=== PATIENT | male | born 1965 | race Caucasian/White ===

== ENCOUNTER 2017-09-08 21:36 | Emergency (ER) | payer OTHER ==
[~2017-09-08] VITALS: Ht 162.6 cm; Wt 54.4 kg
[2017-09-08 21:38] VITALS: BP_SYST 140
[2017-09-08 22:05] LABS: BASOPHILS % (AUTO) 0.5 % (0.0-2.0); EOSINOPHILS % (AUTO) 0.7 % (0.0-4.0); HEMATOCRIT 34.9 % (36-54); HEMOGLOBIN 11.5 g/dL (14.0-18.0); LYMPHOCYTES # (AUTO) 1.2 K/uL (1.0-5.5); LYMPHOCYTES % (AUTO) 19.6 % (20.5-51.5); MEAN CORPUSCULAR HEMOGLOBIN 29 pg (27-31); MEAN CORPUSCULAR HGB CONC 33 % (32-36); MEAN CORPUSCULAR VOLUME 89 fL (79.0-98.0); MONOCYTES # (AUTO) 0.5 K/uL (0.0-1.0); MONOCYTES % (AUTO) 8.4 % (1.7-9.3); NEUTROPHILS # (AUTO) 4.4 K/uL (1.8-7.7); NEUTROPHILS % (AUTO) 70.8 % (40.0-70.0); PLATELET COUNT (AUTO) 221 K/uL (130-430); RED BLOOD CELL COUNT(AUTO) 3.94 MIL/uL (4.2-6.2); RED CELL DISTRIBUTION WIDTH 13.8 % (9.0-15.0); WHITE BLOOD COUNT (AUTO) 6.1 K/uL (4.8-10.8)
[2017-09-08 22:12] LABS: ANION GAP 9 (5-15); CHLORIDE 104 mmol/L (98-107); CREATININE 0.91 mg/dL (0.55-1.30); GLUCOSE 137 mg/dL (70-99); POTASSIUM 3.3 mmol/L (3.5-5.1); SODIUM SERUM 139 mmol/L (136-145); UREA NITROGEN, BLOOD 18 mg/dL (8-21)
[2017-09-08 22:18] LABS: GFR AFRICAN AMERICAN 113 mL/min (>90)
[2017-09-08 22:26] LABS: ALANINE AMINOTRANSFERASE 18 U/L (12-78); ALBUMIN 3.8 g/dL (3.4-4.8); ASPARTATE AMINOTRANSFERASE 15 U/L (10-37); TOTAL BILIRUBIN 0.2 mg/dL (0.0-1.0)
[2017-09-08] MEDS ORDERED: POTASSIUM CHLORIDE 20 MEQ/PKT PACKET PO ONE (22:30)
[2017-09-08 22:52] VITALS: BP_SYST 136
== END 2017-09-08 22:52 | disposition home or self-care (01) ==
LOC: SED 21:36
DX: E87.6 Hypokalemia (principal); R00.2 Palpitations; E03.9 Hypothyroidism, unspecified; Z88.8 Allergy status to other drugs, medicaments and biological substances
CPT/HCPCS: 36415; 80053; 84443-TC; 84484; 85025; 93005; 99285

== ENCOUNTER 2019-08-26 21:12 | Inpatient (IN) | payer OTHER ==
[~2019-08-26] VITALS: Ht 162.6 cm; Wt 59.0 kg
[2019-08-26] MEDS ORDERED: NACL 0.9% 1,700 ML IV ONE (21:14)
[2019-08-26 21:17] VITALS: BP_SYST 87
[2019-08-26 21:54] LABS: BASOPHILS # (AUTO) 0.1 K/uL (0.0-0.2); BASOPHILS % (AUTO) 1.1 % (0.0-2.0); EOSINOPHILS # (AUTO) 0.1 K/uL (0.0-0.4); EOSINOPHILS % (AUTO) 1.6 % (0.0-4.0); HEMATOCRIT 35.3 % (36-54); HEMOGLOBIN 11.6 g/dL (14.0-18.0); LYMPHOCYTES # (AUTO) 1.5 K/uL (1.0-5.5); LYMPHOCYTES % (AUTO) 28.3 % (20.5-51.5); MEAN CORPUSCULAR HEMOGLOBIN 30 pg (27-31); MEAN CORPUSCULAR HGB CONC 33 % (32-36); MEAN CORPUSCULAR VOLUME 90 fL (79.0-98.0); MONOCYTES # (AUTO) 0.5 K/uL (0.0-1.0); MONOCYTES % (AUTO) 9.2 % (1.7-9.3); NEUTROPHILS # (AUTO) 3.1 K/uL (1.8-7.7); NEUTROPHILS % (AUTO) 59.8 % (40.0-70.0); PLATELET COUNT (AUTO) 267 K/uL (130-430); RED BLOOD CELL COUNT(AUTO) 3.94 MIL/uL (4.2-6.2); WHITE BLOOD COUNT (AUTO) 5.2 K/uL (4.8-10.8)
[2019-08-26 21:55] LABS: CALCIUM 8.1 mg/dL (8.4-11.0); CREATININE 1.22 mg/dL (0.55-1.30); POTASSIUM 3.8 mmol/L (3.5-5.1)
[2019-08-26 22:00] LABS: ALBUMIN 3.3 g/dL (3.4-4.8); TOTAL BILIRUBIN 0.2 mg/dL (0.0-1.0)
[2019-08-26] MEDS ORDERED: NACL 0.9% 1,000 ML IV ONE (22:15)
[2019-08-26] MEDS ORDERED: KETOROLAC TROMETHAMINE 30 MG VIAL IVP ONE (22:15)
[2019-08-26] MEDS ORDERED: LEVOFLOXACIN 500 MG/D5W 100 ML IV ONE (22:15)
[2019-08-26 22:39] LABS: BILIRUBIN,URINE NEGATIVE (NEGATIVE); BLOOD, URINE NEGATIVE (NEGATIVE); CLARITY/URINE CLEAR (CLEAR); COLOR,URINE YELLOW (YELLOW); GLUCOSE,URINE NEGATIVE (NEGATIVE); KETONES,URINE NEGATIVE (NEGATIVE); LEUKOCYTE ESTERASE ,URINE NEGATIVE (NEGATIVE); NITRITE, URINE NEGATIVE (NEGATIVE); PROTEIN URINE NEGATIVE (NEGATIVE); UROBILINOGEN,URINE 0.2 (0.2-1.0)
[2019-08-26] MEDS ORDERED: CYM30 PO (22:56)
[2019-08-26] MEDS ORDERED: METO25TA6 PO (22:57)
[2019-08-26] MEDS ORDERED: PREG75CA PO (22:57)
[2019-08-26] MEDS ORDERED: PHEDM120 PO (22:58)
[2019-08-26] MEDS ORDERED: ALBU8.5H8 INH (22:58)
[2019-08-26] MEDS ORDERED: TIZA6CAP7 PO (22:59)
[2019-08-26] MEDS ORDERED: D5/0.45 NS 1,000 ML IV SCH (23:00)
[2019-08-26 23:20] VITALS: BP_SYST 113
[2019-08-26] MEDS ORDERED: ACETAMINOPHEN 325 MG TABLET PO PRN (23:30)
[2019-08-26] MEDS ORDERED: HYDROcodone/ACETAMIN 10-325 MG TAB PO PRN (23:30)
[2019-08-26] MEDS ORDERED: PROMETHAZINE-DM 6.25 MG-15 MG/5 ML UDC PO PRN (23:30)
[2019-08-26] MEDS ORDERED: LORazepam 2 MG/ML VIAL IVP PRN (23:30)
[2019-08-26] MEDS ORDERED: HYDROcodone/ACETAMIN 5-325 MG TAB (NORCO/ VICODIN) PO PRN (23:30)
[2019-08-26] MEDS ORDERED: NALT50TA PO (23:44)
[2019-08-26] MEDS ORDERED: ALBUTEROL SULFATE 0.083% 2.5 MG/3 ML VIAL.NEB INH PRN (23:45)
[2019-08-26] MEDS: D5/0.45 NS 1,000 ML IV SCH (23:55)
[2019-08-27 00:07] VITALS: BP_SYST 113
[2019-08-27 01:14] VITALS: BP_SYST 113
[2019-08-27] MEDS: HYDROmorphone 1 MG INJ. 1 MG/ML AMPUL IVP PRN ×4 (02:25→21:26)
[2019-08-27] MEDS: ONDANSETRON HCL 4 MG/2 ML VIAL IVP PRN ×4 (02:26→21:27)
[2019-08-27] MEDS ORDERED: metroNIDAZOLE 500 mg/NS 100 ML IV ONE (05:05)
[2019-08-27] MEDS: metroNIDAZOLE 500 mg/NS 100 ML IV SCH ×3 (05:29→23:10)
[2019-08-27 07:34] LABS: CALCIUM 7.4 mg/dL (8.4-11.0); CREATININE 0.89 mg/dL (0.55-1.30); PHOSPHORUS 3.5 mg/dL (2.7-4.5); POTASSIUM 4.4 mmol/L (3.5-5.1)
[2019-08-27 07:37] LABS: BASOPHILS % (AUTO) 0.7 % (0.0-2.0); EOSINOPHILS # (AUTO) 0.1 K/uL (0.0-0.4); EOSINOPHILS % (AUTO) 1.9 % (0.0-4.0); HEMATOCRIT 34.5 % (36-54); HEMOGLOBIN 11.5 g/dL (14.0-18.0); LYMPHOCYTES # (AUTO) 1.7 K/uL (1.0-5.5); LYMPHOCYTES % (AUTO) 33.8 % (20.5-51.5); MEAN CORPUSCULAR HEMOGLOBIN 30 pg (27-31); MEAN CORPUSCULAR HGB CONC 33 % (32-36); MEAN CORPUSCULAR VOLUME 89 fL (79.0-98.0); MONOCYTES # (AUTO) 0.5 K/uL (0.0-1.0); MONOCYTES % (AUTO) 9.6 % (1.7-9.3); NEUTROPHILS # (AUTO) 2.7 K/uL (1.8-7.7); PLATELET COUNT (AUTO) 223 K/uL (130-430); RED BLOOD CELL COUNT(AUTO) 3.87 MIL/uL (4.2-6.2); RED CELL DISTRIBUTION WIDTH 15.1 % (9.0-15.0); WHITE BLOOD COUNT (AUTO) 5.1 K/uL (4.8-10.8)
[2019-08-27 07:54] VITALS: BP_SYST 146
[2019-08-27] MEDS: DULoxetine HCL 30 MG CAPSULE.DR (CYMBALTA) PO SCH (08:28)
[2019-08-27] MEDS: PREGABALIN 75 MG CAPSULE (LYRICA) PO SCH ×2 (08:28→20:14)
[2019-08-27] MEDS: CIPROFLOXACIN LACT 400 MG/D5W 200 ML IV SCH ×2 (08:38→20:14)
[2019-08-27] MEDS: METOPROLOL TARTRATE 25 MG TABLET PO SCH (11:14)
[2019-08-27] MEDS: D5/0.45 NS 1,000 ML IV SCH ×2 (11:27→20:15)
[2019-08-27 12:43] VITALS: BP_SYST 154
[2019-08-27 16:43] VITALS: BP_SYST 140
[2019-08-27 20:00] VITALS: BP_SYST 148
[2019-08-27] MEDS: tiZANidine HCL 4 MG TABLET PO SCH (20:14)
[2019-08-28] VITALS: BP_SYST 136
[2019-08-28] MEDS: HYDROmorphone 1 MG INJ. 1 MG/ML AMPUL IVP PRN ×5 (02:53→22:12)
[2019-08-28] MEDS: ONDANSETRON HCL 4 MG/2 ML VIAL IVP PRN ×5 (02:53→22:10)
[2019-08-28] MEDS: metroNIDAZOLE 500 mg/NS 100 ML IV SCH ×2 (05:49→14:33)
[2019-08-28] MEDS: D5/0.45 NS 1,000 ML IV SCH ×2 (05:50→14:35)
[2019-08-28 06:44] LABS: BASOPHILS % (AUTO) 0.8 % (0.0-2.0); EOSINOPHILS # (AUTO) 0.1 K/uL (0.0-0.4); HEMATOCRIT 34.1 % (36-54); HEMOGLOBIN 11.2 g/dL (14.0-18.0); LYMPHOCYTES # (AUTO) 1.3 K/uL (1.0-5.5); LYMPHOCYTES % (AUTO) 20.6 % (20.5-51.5); MEAN CORPUSCULAR HEMOGLOBIN 30 pg (27-31); MEAN CORPUSCULAR HGB CONC 33 % (32-36); MEAN CORPUSCULAR VOLUME 91 fL (79.0-98.0); MONOCYTES # (AUTO) 0.7 K/uL (0.0-1.0); MONOCYTES % (AUTO) 11.4 % (1.7-9.3); NEUTROPHILS % (AUTO) 65.2 % (40.0-70.0); PLATELET COUNT (AUTO) 227 K/uL (130-430); RED BLOOD CELL COUNT(AUTO) 3.77 MIL/uL (4.2-6.2); RED CELL DISTRIBUTION WIDTH 14.9 % (9.0-15.0); WHITE BLOOD COUNT (AUTO) 6.1 K/uL (4.8-10.8)
[2019-08-28 07:30] LABS: C-REACTIVE PROTEIN QUANT < 0.2 mg/dL (0-0.5)
[2019-08-28 07:33] LABS: ANION GAP 7 (5-15); CALCIUM 8.1 mg/dL (8.4-11.0); CHLORIDE 106 mmol/L (98-107); GFR AFRICAN AMERICAN 101 mL/min (>90); GLUCOSE 90 mg/dL (70-99); SODIUM SERUM 140 mmol/L (136-145); UREA NITROGEN, BLOOD 4 mg/dL (8-21)
[2019-08-28 07:45] VITALS: BP_SYST 143
[2019-08-28 08:13] LABS: ERYTHROCYTE SEDIMENTATION RATE 13 MM/HR (0-15)
[2019-08-28] MEDS: DULoxetine HCL 30 MG CAPSULE.DR (CYMBALTA) PO SCH (08:54)
[2019-08-28] MEDS: PREGABALIN 75 MG CAPSULE (LYRICA) PO SCH ×2 (08:54→22:14)
[2019-08-28] MEDS: METOPROLOL TARTRATE 25 MG TABLET PO SCH (08:55)
[2019-08-28] MEDS: CIPROFLOXACIN LACT 400 MG/D5W 200 ML IV SCH ×2 (08:56→22:14)
[2019-08-28] MEDS ORDERED: GASTROGRAFIN 120 ML ONE (09:20)
[2019-08-28 12:00] VITALS: BP_SYST 131
[2019-08-28 17:02] VITALS: BP_SYST 177
[2019-08-28] MEDS: cloNIDine HCL 0.1 MG TABLET PO PRN (18:09)
[2019-08-28 20:30] VITALS: BP_SYST 140
[2019-08-28] MEDS: tiZANidine HCL 4 MG TABLET PO SCH (22:15)
[2019-08-29 00:08] VITALS: BP_SYST 148
[2019-08-29 00:11] VITALS: BP_SYST 128
[2019-08-29] MEDS: metroNIDAZOLE 500 mg/NS 100 ML IV SCH ×4 (00:11→21:46)
[2019-08-29] MEDS: D5/0.45 NS 1,000 ML IV SCH ×3 (01:09→21:18)
[2019-08-29] MEDS: ONDANSETRON HCL 4 MG/2 ML VIAL IVP PRN ×5 (03:24→22:03)
[2019-08-29] MEDS: HYDROmorphone 1 MG INJ. 1 MG/ML AMPUL IVP PRN ×5 (03:27→21:51)
[2019-08-29 06:10] LABS: CALCIUM 8.2 mg/dL (8.4-11.0); CREATININE 0.88 mg/dL (0.55-1.30); POTASSIUM 4.2 mmol/L (3.5-5.1)
[2019-08-29 06:26] LABS: BASOPHILS % (AUTO) 0.9 % (0.0-2.0); EOSINOPHILS # (AUTO) 0.1 K/uL (0.0-0.4); EOSINOPHILS % (AUTO) 2.5 % (0.0-4.0); HEMATOCRIT 32.4 % (36-54); HEMOGLOBIN 10.7 g/dL (14.0-18.0); LYMPHOCYTES # (AUTO) 1.2 K/uL (1.0-5.5); LYMPHOCYTES % (AUTO) 23.6 % (20.5-51.5); MEAN CORPUSCULAR HEMOGLOBIN 30 pg (27-31); MEAN CORPUSCULAR HGB CONC 33 % (32-36); MONOCYTES # (AUTO) 0.8 K/uL (0.0-1.0); MONOCYTES % (AUTO) 16.1 % (1.7-9.3); NEUTROPHILS % (AUTO) 56.9 % (40.0-70.0); PLATELET COUNT (AUTO) 223 K/uL (130-430); RED BLOOD CELL COUNT(AUTO) 3.62 MIL/uL (4.2-6.2); RED CELL DISTRIBUTION WIDTH 14.6 % (9.0-15.0); WHITE BLOOD COUNT (AUTO) 5.2 K/uL (4.8-10.8)
[2019-08-29 07:25] LABS: MEAN CORPUSCULAR VOLUME 89 fL (79.0-98.0)
[2019-08-29] MEDS: DULoxetine HCL 30 MG CAPSULE.DR (CYMBALTA) PO SCH (08:36)
[2019-08-29] MEDS: PREGABALIN 75 MG CAPSULE (LYRICA) PO SCH ×2 (08:38→21:45)
[2019-08-29] MEDS: METOPROLOL TARTRATE 25 MG TABLET PO SCH (08:38)
[2019-08-29 13:08] VITALS: BP_SYST 117
[2019-08-29] MEDS: CIPROFLOXACIN LACT 400 MG/D5W 200 ML IV SCH ×2 (13:13→21:45)
[2019-08-29 16:39] VITALS: BP_SYST 142
[2019-08-29] MEDS ORDERED: BISACODYL 5 MG TABLET.DR (DULCOLAX) PO ONE (17:00)
[2019-08-29] MEDS ORDERED: GOLYTELY / COLYTE SOLUTION 4 LITERS PO ONE (18:00)
[2019-08-29 20:00] VITALS: BP_SYST 156
[2019-08-29] MEDS: tiZANidine HCL 4 MG TABLET PO SCH (21:46)
[2019-08-29] MEDS: cloNIDine HCL 0.1 MG TABLET PO PRN (21:50)
[2019-08-30] VITALS (11 sets, daily range): BP systolic 103–191
[2019-08-30] MEDS: HYDROmorphone 1 MG INJ. 1 MG/ML AMPUL IVP PRN ×2 (02:45→20:29)
[2019-08-30] MEDS: ONDANSETRON HCL 4 MG/2 ML VIAL IVP PRN ×2 (02:46→14:02)
[2019-08-30] MEDS: metroNIDAZOLE 500 mg/NS 100 ML IV SCH ×2 (05:49→14:00)
[2019-08-30] MEDS ORDERED: SIMETHICONE 40 MG/0.6 ML ML ONE (06:15)
[2019-08-30] MEDS ORDERED: fentaNYL CITRATE/PF 100 MCG/2 ML AMP ONE (06:16)
[2019-08-30] MEDS ORDERED: MIDAZOLAM HCL 5 MG/5 ML VIAL ONE (06:16)
[2019-08-30] MEDS ORDERED: ONDANSETRON HCL 4 MG/2 ML VIAL IVP PRN (07:30)
[2019-08-30] MEDS ORDERED: fentaNYL CITRATE/PF 100 MCG/2 ML AMP IVP PRN ×2 (07:30)
[2019-08-30] MEDS: CIPROFLOXACIN LACT 400 MG/D5W 200 ML IV SCH (09:39)
[2019-08-30] MEDS: PREGABALIN 75 MG CAPSULE (LYRICA) PO SCH ×2 (09:41→19:46)
[2019-08-30] MEDS: DULoxetine HCL 30 MG CAPSULE.DR (CYMBALTA) PO SCH (09:41)
[2019-08-30] MEDS: METOPROLOL TARTRATE 25 MG TABLET PO SCH (09:42)
[2019-08-30] MEDS ORDERED: POLY17PO4 PO (17:16)
[2019-08-30] MEDS ORDERED: FAMO20TA8 PO (17:16)
[2019-08-30] MEDS ORDERED: DOCU250C14 PO (17:16)
[2019-08-30] MEDS ORDERED: FLU VACC QS2019-20 36MOS UP/PF 60 MCG/0.5 ML SYRINGE I.M. PRN (18:30)
[2019-08-30] MEDS: tiZANidine HCL 4 MG TABLET PO SCH (19:47)
[2019-08-30] MEDS: cloNIDine HCL 0.1 MG TABLET PO PRN (19:50)
== END 2019-08-30 21:45 | disposition home or self-care (01) | DRG 872 ==
LOC: SED 21:12 → STU 22:53 → SMU 08-27 21:18 → STU 08-28 18:41 → SMU 08-28 23:16
PROVIDERS: ADMIT Preventive Medicine Preventive Medicine/Occupational Environmental Medicine; ATTEND Preventive Medicine Preventive Medicine/Occupational Environmental Medicine
PROC: 0DJD8ZZ Inspection of Lower Intestinal Tract, Via Natural or Artificial Opening Endoscopic (ICD-10-PCS; 2019-08-30)
PROC: 0DB98ZX Excision of Duodenum, Via Natural or Artificial Opening Endoscopic, Diagnostic (ICD-10-PCS; principal; 2019-08-30 07:00)
PROC: 0DB68ZX Excision of Stomach, Via Natural or Artificial Opening Endoscopic, Diagnostic (ICD-10-PCS; 2019-08-30 07:00)
DX: A41.9 Sepsis, unspecified organism (principal); A09 Infectious gastroenteritis and colitis, unspecified; E44.0 Moderate protein-calorie malnutrition; E87.2 Acidosis; K56.609 Unspecified intestinal obstruction, unspecified as to partial versus complete obstruction; D64.9 Anemia, unspecified; E83.52 Hypercalcemia; H54.8 Legal blindness, as defined in USA; K22.70 Barrett's esophagus without dysplasia; K29.70 Gastritis, unspecified, without bleeding; K44.9 Diaphragmatic hernia without obstruction or gangrene; R73.9 Hyperglycemia, unspecified; K59.00 Constipation, unspecified; K57.30 Diverticulosis of large intestine without perforation or abscess without bleeding; K64.8 Other hemorrhoids; M79.7 Fibromyalgia; Z85.038 Personal history of other malignant neoplasm of large intestine; Z68.22 Body mass index [BMI] 22.0-22.9, adult; Z79.899 Other long term (current) drug therapy; Z88.8 Allergy status to other drugs, medicaments and biological substances; Z80.0 Family history of malignant neoplasm of digestive organs
CPT/HCPCS: 36415; 43239; 45378; 71045; 74250-TC; 80048; 80053; 81003; 83605; 83735-TC; 84100-TC; 85025; 85651-TC; 86140; 87040-TC; 87045-TC; 87046; 87177; 87230-TC; 88305; 88312; 88313; 88341; 88342; 93005; 96361; 96365; 96375; 99291; G0378; J0744; J1170; J1885; J1956; J2250; J2405; J3010; J3490; Q2037; Q9963

== ENCOUNTER 2023-10-13 05:35 | Day surgery (SDC) | payer OTHER ==
[~2023-10-13] VITALS: Ht 157.5 cm; Wt 62.6 kg
[~2023-10-13 05:35] MED LIST: ALBU8.5H8 INH; CYM30 PO; DOCU250C14 PO; FAMO20TA8 PO; METO25TA6 PO; NALT50TA PO; PHEDM120 PO; POLY17PO4 PO; PREG75CA PO; TIZA6CAP7 PO
[2023-10-13] MEDS ORDERED: SIMETHICONE 40 MG/0.6 ML ML ONE (06:19)
[2023-10-13] MEDS ORDERED: LIDOCAINE 2%, 20 ML MDV ONE (07:05)
[2023-10-13] MEDS ORDERED: PROPOFOL 200MG/ 20ML VIAL (DIPRIVAN) IV ONE (07:05)
[2023-10-13 07:30] VITALS: O2SAT 97
[2023-10-13 09:25] VITALS: BP_SYST 135; PULSE 75; RESP 20
== END 2023-10-13 09:18 | disposition home or self-care (01) ==
LOC: SDS 05:35 → SMU 05:35 → SDS 09:18
PROVIDERS: ATTEND Internal Medicine Gastroenterology
DX: K21.00 Gastro-esophageal reflux disease with esophagitis, without bleeding (principal); K22.70 Barrett's esophagus without dysplasia; I10 Essential (primary) hypertension; J45.909 Unspecified asthma, uncomplicated; Z79.899 Other long term (current) drug therapy
CPT/HCPCS: 71046; 93005; 43239; 88305; 88313; G0378; J2001; J2704

== ENCOUNTER 2023-11-07 11:58 | Inpatient (IN) | payer OTHER, MEDICAID ==
[~2023-11-07] VITALS: Ht 162.6 cm; Wt 61.8 kg
[~2023-11-07 11:58] MED LIST changes: +DULO20CA PO; +HYDR25TA4 PO; +LEVO75TA7 PO; +LYR25 PO; +METO50TA16 PO; +OMEP20CA15 PO; +PREG150C47 PO; +PRO10 PO; +PROM6.2527 PO; -TIZA6CAP7 PO
[2023-11-07 12:20] VITALS: BP_SYST 192; PULSE 92; RESP 18; TEMP 97.6; O2SAT 99
[2023-11-07] MEDS ORDERED: MORPHINE 4 MG INJ. 4 MG/ML VIAL IVP ONE ×2 (12:45→13:45)
[2023-11-07 13:13] LABS: BASOPHILS # (AUTO) 0.1 K/uL (0.0-0.2); BASOPHILS % (AUTO) 0.7 % (0.0-2.0); EOSINOPHILS # (AUTO) 0.1 K/uL (0.0-0.4); EOSINOPHILS % (AUTO) 0.6 % (0.0-4.0); HEMATOCRIT 36.7 % (36-54); LYMPHOCYTES # (AUTO) 1.1 K/uL (1.0-5.5); LYMPHOCYTES % (AUTO) 11.4 % (20.5-51.5); MEAN CORPUSCULAR HEMOGLOBIN 28 pg (27-31); MEAN CORPUSCULAR HGB CONC 33 % (32-36); MEAN CORPUSCULAR VOLUME 84 fL (79.0-98.0); MONOCYTES # (AUTO) 0.9 K/uL (0.0-1.0); MONOCYTES % (AUTO) 8.6 % (1.7-9.3); NEUTROPHILS # (AUTO) 7.9 K/uL (1.8-7.7); NEUTROPHILS % (AUTO) 78.7 % (40.0-70.0); PLATELET COUNT (AUTO) 263 K/uL (130-430); RED BLOOD CELL COUNT(AUTO) 4.38 MIL/uL (4.2-6.2); RED CELL DISTRIBUTION WIDTH 17.1 % (9.0-15.0)
[2023-11-07] MEDS ORDERED: BISA10SU61 RC (13:14)
[2023-11-07] MEDS ORDERED: DOCU-159 PO (13:14)
[2023-11-07] MEDS ORDERED: LEVO500P13 IV (13:14)
[2023-11-07] MEDS ORDERED: IBUP-1503 PO (13:14)
[2023-11-07 13:15] LABS: WHITE BLOOD COUNT (AUTO) 10.1 K/uL (4.8-10.8)
[2023-11-07] MEDS ORDERED: SENN8.6T19 PO (13:15)
[2023-11-07] MEDS ORDERED: MOM PO (13:15)
[2023-11-07] MEDS ORDERED: ALBU90AE2 PO (13:15)
[2023-11-07 13:24] LABS: ALANINE AMINOTRANSFERASE 22 U/L (12-78); ALBUMIN 3.8 g/dL (3.4-4.8); ANION GAP 15 (5-15); ASPARTATE AMINOTRANSFERASE 23 U/L (10-37); CALCIUM 10.3 mg/dL (8.4-11.0); CARBON DIOXIDE 23 mmol/L (23-29); CHLORIDE 98 mmol/L (98-107); CREATININE 1.01 mg/dL (0.55-1.30); GFR AFRICAN AMERICAN 98 mL/min (>90); GFR NON AFRICAN-AMERICAN 81 mL/min (>90); GLUCOSE 116 mg/dL (74-106); POTASSIUM 3.7 mmol/L (3.5-5.1); SODIUM SERUM 136 mmol/L (136-145); TOTAL BILIRUBIN 0.3 mg/dL (0.0-1.0); TOTAL PROTEIN, SERUM 8.2 g/dL (6.4-8.3); UREA NITROGEN, BLOOD 7 mg/dL (8-21)
[2023-11-07 13:26] LABS: BILIRUBIN,DIRECT 0.1 mg/dL (0.0-0.3); CREATINE KINASE, TOTAL 127 U/L (39-308)
[2023-11-07] MEDS ORDERED: DOCUSATE SODIUM 100 MG CAPSULE PO PRN (14:30)
[2023-11-07] MEDS ORDERED: MAGNESIUM SULFATE 50 ML IV PRN (14:30)
[2023-11-07] MEDS ORDERED: MUPIROCIN 2% TOPICAL OINTMENT 22 GM NS PRN (14:30)
[2023-11-07] MEDS ORDERED: cloNIDine HCL 0.1 MG TABLET PO PRN (14:30)
[2023-11-07] MEDS ORDERED: POTASSIUM CHLORIDE 20 MEQ TABLET.ER PO PRN (14:30)
[2023-11-07] MEDS ORDERED: IBUPROFEN 400 MG TABLET PO PRN (14:30)
[2023-11-07] MEDS ORDERED: METOPROLOL TARTRATE 5 MG/5 ML VIAL IVP ONE (14:30)
[2023-11-07] MEDS ORDERED: MORPHINE 2 MG/ML INJ. SYRINGE IVP PRN (14:30)
[2023-11-07] MEDS ORDERED: ZOLPIDEM TARTRATE 5 MG TABLET PO PRN (14:30)
[2023-11-07] MEDS ORDERED: IPRATROPIUM/ALBUTEROL SULFATE 3 ML AMPUL.NEB (DUONEB) INH PRN (14:30)
[2023-11-07] MEDS ORDERED: LEVOFLOXACIN 500 mg/D5W 100 mL IVPB IV ONE (14:45)
[2023-11-07] MEDS ORDERED: cloNIDine HCL 0.1 MG TABLET PO ONE (14:45)
[2023-11-07 15:23] VITALS: BP_SYST 166; PULSE 97; O2SAT 97
[2023-11-07] MEDS: ONDANSETRON HCL 4 MG/2 ML VIAL IVP PRN (17:39)
[2023-11-07] MEDS: MORPHINE 2 MG/ML INJ. SYRINGE IVP PRN (18:40)
[2023-11-07] MEDS ORDERED: METOPROLOL TARTRATE 50 MG TABLET PO SCH (21:00)
[2023-11-07] MEDS ORDERED: PREGABALIN PO SCH (21:00)
[2023-11-07] MEDS: PREGABALIN 75 MG CAPSULE (LYRICA) PO SCH (21:44)
[2023-11-07] MEDS: DOCUSATE SODIUM 100 MG CAPSULE PO SCH (21:45)
[2023-11-07] MEDS: SENNOSIDES 8.6 MG TABLET PO SCH (23:14)
[2023-11-07] MEDS: HEPARIN SODIUM,PORCINE 5,000 UNITS/ML VIAL SUBCUT SCH (23:41)
[2023-11-08 03:35] VITALS: BP_SYST 130; PULSE 80; RESP 18; TEMP 98.2
[2023-11-08 04:48] VITALS: O2SAT 97
[2023-11-08] MEDS: ONDANSETRON HCL 4 MG/2 ML VIAL IVP PRN ×4 (05:21→23:47)
[2023-11-08] MEDS: LEVOTHYROXINE SODIUM 0.075 MG TABLET PO SCH (07:28)
[2023-11-08 07:48] LABS: BASOPHILS % (AUTO) 0.3 % (0.0-2.0); EOSINOPHILS % (AUTO) 0.1 % (0.0-4.0); HEMATOCRIT 36.7 % (36-54); HEMOGLOBIN 11.8 g/dL (14.0-18.0); LYMPHOCYTES # (AUTO) 1.2 K/uL (1.0-5.5); LYMPHOCYTES % (AUTO) 11.7 % (20.5-51.5); MEAN CORPUSCULAR HEMOGLOBIN 27 pg (27-31); MEAN CORPUSCULAR HGB CONC 32 % (32-36); MEAN CORPUSCULAR VOLUME 85 fL (79.0-98.0); MONOCYTES % (AUTO) 9.2 % (1.7-9.3); NEUTROPHILS # (AUTO) 8.3 K/uL (1.8-7.7); NEUTROPHILS % (AUTO) 78.7 % (40.0-70.0); PLATELET COUNT (AUTO) 267 K/uL (130-430); RED BLOOD CELL COUNT(AUTO) 4.35 MIL/uL (4.2-6.2); RED CELL DISTRIBUTION WIDTH 17.5 % (9.0-15.0); WHITE BLOOD COUNT (AUTO) 10.6 K/uL (4.8-10.8)
[2023-11-08 08:00] VITALS: BP_SYST 130; PULSE 79; RESP 18; TEMP 98.1; O2SAT 97
[2023-11-08] MEDS ORDERED: SCOPOLAMINE HYDROBROMIDE 1 MG PATCH .72 H (TRANSDERM-SCOP) TD ONE (08:12)
[2023-11-08] MEDS ORDERED: CELECOXIB 100 MG CAPSULE ONE (08:12)
[2023-11-08] MEDS ORDERED: oxyCODONE HCL 10 MG TAB.ER.12H PO ONE (08:12)
[2023-11-08] MEDS ORDERED: ACETAMINOPHEN 500 MG TABLET ONE (08:12)
[2023-11-08 08:23] LABS: CALCIUM 9.9 mg/dL (8.4-11.0); CREATININE 1.06 mg/dL (0.55-1.30); FREE T4 (FREE THYROXINE) 0.9 ng/dL (0.6-1.6); POTASSIUM 3.3 mmol/L (3.5-5.1); THYROID STIMULATING HORMONE 4.38 uIu/mL (0.34-4.82)
[2023-11-08] MEDS ORDERED: HYDROCHLOROTHIAZIDE 25 MG TABLET (HCTZ) PO SCH (09:00)
[2023-11-08] MEDS ORDERED: LEVOFLOXACIN 500 mg/D5W 100 mL IVPB IV SCH (09:00)
[2023-11-08] MEDS: DOCUSATE SODIUM 100 MG CAPSULE PO SCH ×2 (09:01→21:00)
[2023-11-08] MEDS: METOPROLOL SUCCINATE 50 MG TAB.SR.24H (TOPROL XL) PO SCH (09:04)
[2023-11-08] MEDS: HYDROCHLOROTHIAZIDE 25 MG TABLET (HCTZ) PO SCH (09:04)
[2023-11-08] MEDS: DULoxetine HCL 20 MG CAPSULE.DR PO SCH (09:05)
[2023-11-08] MEDS: POLYETHYLENE GLYCOL 3350, 17 GM/ POWD.PACK PO SCH (09:05)
[2023-11-08] MEDS: HEPARIN SODIUM,PORCINE 5,000 UNITS/ML VIAL SUBCUT SCH ×2 (09:07→21:53)
[2023-11-08] MEDS: MORPHINE 2 MG/ML INJ. SYRINGE IVP PRN ×2 (09:34→20:42)
[2023-11-08 11:05] VITALS: BP_SYST 136; PULSE 80; RESP 16; TEMP 96.8; O2SAT 99
[2023-11-08 15:25] VITALS: BP_SYST 149; PULSE 72; RESP 16; TEMP 98; O2SAT 93
[2023-11-08 20:00] VITALS: BP_SYST 147; PULSE 73; RESP 18; TEMP 98.4; O2SAT 98
[2023-11-08] MEDS ORDERED: MELATONIN 5 MG TABLET PO SCH (21:00)
[2023-11-08] MEDS: SENNOSIDES 8.6 MG TABLET PO SCH (21:00)
[2023-11-08] MEDS: PREGABALIN 75 MG CAPSULE (LYRICA) PO SCH (21:51)
[2023-11-09 00:06] VITALS: BP_SYST 156; PULSE 68; RESP 16; TEMP 97.3; O2SAT 97
[2023-11-09] MEDS: LORazepam 2 MG/ML VIAL IVP PRN ×2 (03:41→10:32)
[2023-11-09 05:32] LABS: BASOPHILS % (AUTO) 0.2 % (0.0-2.0); EOSINOPHILS % (AUTO) 0.1 % (0.0-4.0); HEMATOCRIT 33.7 % (36-54); HEMOGLOBIN 10.9 g/dL (14.0-18.0); LYMPHOCYTES # (AUTO) 1.2 K/uL (1.0-5.5); LYMPHOCYTES % (AUTO) 12.3 % (20.5-51.5); MEAN CORPUSCULAR HEMOGLOBIN 27 pg (27-31); MEAN CORPUSCULAR HGB CONC 32 % (32-36); MEAN CORPUSCULAR VOLUME 84 fL (79.0-98.0); MONOCYTES # (AUTO) 1.1 K/uL (0.0-1.0); MONOCYTES % (AUTO) 10.8 % (1.7-9.3); NEUTROPHILS # (AUTO) 7.5 K/uL (1.8-7.7); NEUTROPHILS % (AUTO) 76.6 % (40.0-70.0); PLATELET COUNT (AUTO) 255 K/uL (130-430); RED BLOOD CELL COUNT(AUTO) 4.02 MIL/uL (4.2-6.2); RED CELL DISTRIBUTION WIDTH 17.2 % (9.0-15.0); WHITE BLOOD COUNT (AUTO) 9.8 K/uL (4.8-10.8)
[2023-11-09 05:56] LABS: ALBUMIN 3.3 g/dL (3.4-4.8); CALCIUM 9.5 mg/dL (8.4-11.0); CREATININE 1.02 mg/dL (0.55-1.30); TOTAL BILIRUBIN 0.2 mg/dL (0.0-1.0); TOTAL PROTEIN, SERUM 7.2 g/dL (6.4-8.3)
[2023-11-09] MEDS: LEVOTHYROXINE SODIUM 0.075 MG TABLET PO SCH (06:11)
[2023-11-09] MEDS ORDERED: LOSARTAN POTASSIUM 50 MG TABLET (COZAAR) PO SCH (09:00)
[2023-11-09] MEDS: DOCUSATE SODIUM 100 MG CAPSULE PO SCH (09:21)
[2023-11-09] MEDS: METOPROLOL SUCCINATE 50 MG TAB.SR.24H (TOPROL XL) PO SCH (09:23)
[2023-11-09] MEDS: POLYETHYLENE GLYCOL 3350, 17 GM/ POWD.PACK PO SCH (09:24)
[2023-11-09] MEDS: HYDROCHLOROTHIAZIDE 25 MG TABLET (HCTZ) PO SCH (09:24)
[2023-11-09] MEDS: DULoxetine HCL 20 MG CAPSULE.DR PO SCH (09:28)
[2023-11-09] MEDS: HEPARIN SODIUM,PORCINE 5,000 UNITS/ML VIAL SUBCUT SCH (09:29)
[2023-11-09] MEDS: ONDANSETRON HCL 4 MG/2 ML VIAL IVP PRN (10:00)
[2023-11-09 11:11] VITALS: BP_SYST 132; BP_SYST 150; PULSE 74; PULSE 89; RESP 16; RESP 17; TEMP 96.6; TEMP 98; O2SAT 93; O2SAT 97
[2023-11-09] MEDS ORDERED: cloNIDine HCL 0.2 MG TABLET PO PRN (11:30)
[2023-11-09 14:48] VITALS: BP_SYST 132; PULSE 74; RESP 17; TEMP 96.6; O2SAT 97
[2023-11-09 15:08] VITALS: BP_SYST 110; PULSE 51; RESP 16; TEMP 97.2; O2SAT 100
== END 2023-11-09 15:27 | DRG 304 ==
LOC: SED 11:58 → STU 13:53 → SMU 11-08 19:51
PROVIDERS: ADMIT General Practice; ATTEND General Practice
DX: I16.0 Hypertensive urgency (principal); J69.0 Pneumonitis due to inhalation of food and vomit; J44.9 Chronic obstructive pulmonary disease, unspecified; G89.4 Chronic pain syndrome; M47.812 Spondylosis without myelopathy or radiculopathy, cervical region; K59.09 Other constipation; K44.9 Diaphragmatic hernia without obstruction or gangrene; I10 Essential (primary) hypertension; E03.9 Hypothyroidism, unspecified; Z88.5 Allergy status to narcotic agent; Z88.8 Allergy status to other drugs, medicaments and biological substances; Z79.899 Other long term (current) drug therapy; Z99.81 Dependence on supplemental oxygen
CPT/HCPCS: 36415; 71045; 80048; 80053; 80076; 82550; 83037; 83735; 83880; 84439; 84443; 84484; 85025; 87040; 87081; 93005; 93306; 94760; 96374; 96375; 99285; G0378; J1644; J1956; J2060; J2270; J2405; J3490